=== PATIENT | female | born 1945 | race Caucasian/White ===

== ENCOUNTER 2018-11-29 20:46 | Emergency (ER) | payer MEDICARE ==
--- NOTE | 2018-11-29 21:02 | Emergency Department Record ---
History of Present Illness - General Chief complaint: Female Urogenital Problem Stated complaint: BLOOD IN URINE Time Seen by Provider: 11/29/18 20:56 Source: Patient Mode of Arrival: Ambulatory Limitations: No limitations - History of Present Illness Initial comments: 73 yo female presents with a concern about blood in her urine. She has had some discomfort with urination the last four days. This morning she noted a small amount of pinkish color to the urine. NO fever, vomiting, flank pain. No significant abdominal pain. No history of stones. MD Complaint: Other (Blood in urine) Location: Suprapubic (very minimal) Severity: Mild Quality: Other Consistency: Constant Improves with: None Worsens with: None Associated Symptoms: Dysuria, Other (Tired today) - Related Data Home Medications Medication Instructions Recorded Confirmed Last Taken Albuterol Sulfate [Ventolin Hfa] 1 - 2 puff IH .EVERY 4-6 HOURS PRN 11/29/18 11/29/18 Unknown Aspirin [Aspir-Low] 81 mg PO DAILY 11/29/18 11/29/18 Unknown Biotin 10,000 mcg PO DAILY 11/29/18 11/29/18 Unknown Bisoprol/Hydrochlorothiazide 1 each PO DAILY 11/29/18 11/29/18 Unknown [Bisoprolol-Hctz 5-6.25 mg Tab] Calcium Carbonate/Vitamin D3 2 each PO DAILY 11/29/18 11/29/18 Unknown [Calcium 600-Vit D3 800 Tablet] Levothyroxine Sodium [Synthroid] 75 mcg PO DAILY 11/29/18 11/29/18 Unknown Meloxicam [Mobic] 7.5 mg PO DAILY 11/29/18 11/29/18 Unknown Multivitamin [Multi-Vitamin Daily] 1 each PO DAILY 11/29/18 11/29/18 Unknown Omeprazole [Prilosec] 20 mg PO DAILY 11/29/18 11/29/18 Unknown Simvastatin [Zocor] 40 mg PO QHS 11/29/18 11/29/18 Unknown Previous Rx's Medication Instructions Recorded Nitrofurantoin Monohyd/M-Cryst 100 mg PO BID #14 capsule 11/29/18 [Macrobid 100 mg Capsule] Allergies Allergy/AdvReac Type Severity Reaction Status Date / Time sulfamethoxazole Allergy ITCHING Verified 11/29/18 20:52 [From Bactrim] trimethoprim [From Bactrim] Allergy ITCHING Verified 11/29/18 20:52 Review of Systems Constitutional: Denies: Chills, Fever, Malaise, Weakness Eyes: Denies: Eye discharge ENT: Denies: Congestion, Throat pain Respiratory: Denies: Cough Cardiovascular: Denies: Chest pain, Palpitations, Syncope Endocrine: Denies: Fatigue Gastrointestinal: Denies: Abdominal pain, Diarrhea, Nausea, Vomiting Genitourinary: Reports: Hematuria Musculoskeletal: Denies: Arthralgia, Back pain, Myalgia, Neck pain Skin: Denies: Bruising, Change in color, Rash Neurological: Denies: Headache, Numbness, Weakness Psychiatric: Denies: Anxiety Hematological/Lymphatic: Denies: Easy bleeding, Easy bruising Physical Exam - General General Appearance: Alert, Oriented x3, Cooperative, No acute distress Limitations: No limitations - Head Head exam: Atraumatic, Normal inspection - Eye Eye exam: Normal appearance, PERRL. negative: Conjunctival injection, Scleral icterus - ENT ENT exam: Normal exam, Mucous membranes moist Ear exam: Normal external inspection Nasal Exam: Normal inspection Mouth exam: Normal external inspection - Neck Neck exam: Normal inspection - Respiratory Respiratory exam: Normal lung sounds bilaterally - Cardiovascular Cardiovascular Exam: Regular rate, Normal rhythm, Normal heart sounds - GI/Abdominal GI/Abdominal exam: Soft. negative: Tenderness - Rectal Rectal exam: Deferred - exam: Deferred - Extremities Extremities exam: Normal inspection - Back Back exam: Denies: CVA tenderness (R), CVA tenderness (L) - Neurological Neurological exam: Alert, Oriented X3 - Psychiatric Psychiatric exam: Normal affect, Normal mood. negative: Agitated, Anxious - Skin Skin exam: Dry, Intact, Normal color, Warm Course Vital Signs 11/29/18 20:54 Temperature 99.0 F Pulse Rate [ 83 Left] Respiratory 16 Rate Blood Pressure 151/74 [Left Arm] Pulse Ox 96 - Reevaluation(s) Reevaluation #1: 11/29/18 21:26 The UA was reviewed RBC's TNTC, WBC 10-15 with Few bacteria She has not abdominal pain or tenderness She will be placed on Macrobid We discussed reasons to immediately be seen including pain, tenderness, fever A culture of the urine was ordered Disposition Disposition: Discharge Clinical Impression: Dysuria, Urinary tract infection Disposition: Home, Self-Care Condition: (1) Good Instructions: Urinary Tract Infection in Women (ED) Additional Instructions: Call to get a new family doctor for the next available follow up appointment Return to the ER for a recheck if worse, any new concerns or questions Take the prescriptions provided as directed Prescriptions: Nitrofurantoin Monohyd/M-Cryst [Macrobid 100 mg Capsule] 100 mg PO BID #14 capsule Forms: Patient Portal Access Time of Disposition: 21:25 Quality - Quality Measures Quality Measures: N/A - Blood Pressure Screening Does Patient Have Any of the Following: No Blood Pressure Classification: Hypertensive Reading Systolic Measurement: 151 Diastolic Measurement: 74 Screening for High Blood Pressure: < Pre-Hypertensive BP, F/U Documented > [G8950] Pre-Hypertensive Follow-up Interventions: Referral to alternative/primary care provider.
[2018-11-29 21:17] LABS: URINE APPEARANCE CLOUDY; URINE BILIRUBIN NEGATIVE (NEGATIVE); URINE BLOOD LARGE (NEGATIVE); URINE COLOR YELLOW; URINE GLUCOSE (UA) NEGATIVE (NEGATIVE); URINE KETONE NEGATIVE (NEGATIVE); URINE LEUKOCYTE ESTERASE SMALL (NEGATIVE); URINE NITRITE NEGATIVE (NEGATIVE); URINE UROBILINOGEN 0.2 E.U./dL (0.20 - 1.00)
[2018-11-29 21:23] LABS: URINE EPITHELIAL CELLS 0 - 2 (FEW)
[2018-11-29 21:24] LABS: URINE BACTERIA FEW
[2018-11-29] MEDS ORDERED: NITROFURANTOIN MONO 100 MG CAPSULE PO ONE (21:25)
== END 2018-11-29 21:36 | disposition home or self-care (01) ==
LOC: ER 20:46
DX: N39.0 Urinary tract infection, site not specified (principal); R31.0 Gross hematuria
CPT/HCPCS: 81001; 99282